=== PATIENT | male | born 1990 | race Caucasian/White ===

== ENCOUNTER 2023-07-22 23:13 | Emergency (ER) | payer BC ==
[~2023-07-22] VITALS: Ht 170.2 cm; Wt 121.4 kg
[2023-07-22 23:14] VITALS: BP 126/71; TEMP 98; O2SAT 100
[2023-07-23] MEDS ORDERED: BOOSTRIX VACCINE (TETANUS/DIPHTH/ACEL. PERTUSSIS) 0.5ML SYR IM ONE (01:55)
[2023-07-23] MEDS ORDERED: LIDOCAINE 2% MDV 20ML VIAL SC ONE (01:55)
[2023-07-23] MEDS ORDERED: AUGMENTIN 875 MG TAB PO ONE (01:55)
[2023-07-23] MEDS ORDERED: AMOX875T2 PO (02:23)
== END 2023-07-23 03:05 | disposition home or self-care (01) ==
LOC: M ED 23:13
DX: S61.431A Puncture wound without foreign body of right hand, initial encounter (principal); W54.0XXA Bitten by dog, initial encounter; F12.10 Cannabis abuse, uncomplicated; F10.10 Alcohol abuse, uncomplicated; Z79.2 Long term (current) use of antibiotics; Y92.009 Unspecified place in unspecified non-institutional (private) residence as the place of occurrence of the external cause; Y93.89 Activity, other specified; Y99.9 Unspecified external cause status